=== PATIENT | female | born 1930 | race Two or more races ===

== ENCOUNTER 2020-07-24 21:25 | Inpatient (IN) | payer MEDICARE, BC ==
[~2020-07-24] VITALS: Ht 160 cm; Wt 60.0 kg
[2020-07-24 20:00] VITALS: BP 141/32
[~2020-07-24 21:25] MED LIST: HYDR12.54 PO
[2020-07-24 22:00] VITALS: BP 141/32
[2020-07-24] MEDS ORDERED: ALBUTEROL 6.7GM HFA INHALER ORI PRN (23:15)
[2020-07-24] MEDS ORDERED: CLONIDINE 0.1MG TABLET PO PRN (23:15)
[2020-07-24] MEDS ORDERED: GUAIFENESIN 200MG/10ML SUGAR FREE UDC PO PRN (23:15)
[2020-07-24] MEDS ORDERED: LORAZEPAM 0.5MG TABLET PO PRN (23:15)
[2020-07-24] MEDS ORDERED: NA PHOS,M-B/NA PHOS,DI-BA ENEMA 118ML PR PRN (23:15)
[2020-07-24] MEDS ORDERED: NITROGLYCERIN 0.4MG TABLET SL SL PRN (23:15)
[2020-07-24] MEDS ORDERED: ZOLPIDEM TARTRATE 5MG TABLET PO PRN (23:15)
[2020-07-24] MEDS ORDERED: ACETAMINOPHEN 325MG TABLET PO PRN (23:15)
[2020-07-25] MEDS: ACETAMINOPHEN 325MG TABLET PO PRN ×3 (00:08→21:03)
[2020-07-25] MEDS: SIMETHICONE 80MG TABLET CHEW PO PRN (00:09)
[2020-07-25] MEDS: DOCUSATE SODIUM 100MG CAPSULE PO PRN (05:01)
[2020-07-25 08:00] VITALS: BP 148/34
[2020-07-25 09:09] LABS: CHLORIDE 111 mEq/L (98-107)
[2020-07-25 09:14] LABS: HEMATOCRIT. 27.3 % (36.0-48.0); HEMOGLOBIN. 8.5 g/dL (12.0-16.0); MEAN CORPUSCULAR HEMOGLOBIN 33.6 pg (28.0-32.0); MEAN CORPUSCULAR VOLUME 108.4 fL (81.0-99.0); MEAN PLATELET VOLUME 12.7 fl (7.4-10.4); PLATELET 126 x1000/uL (130-400); RED BLOOD CELL COUNT 2.52 mill/uL (4.2-5.4); RED CELL DISTRIBUTION WIDTH 22.1 % (11.6-14.6)
[2020-07-25] MEDS: ZINC SULFATE 220 MG ( 50 ) CAPSULE PO SCH (09:43)
[2020-07-25] MEDS: ASCORBIC ACID 500 MG TABLET PO SCH ×2 (09:43→20:54)
[2020-07-25] MEDS: CALCIUM CARBONATE/VITAMIN D3 500MG TABLET PO SCH ×2 (09:44→17:27)
[2020-07-25] MEDS: LIDOCAINE 5% PATCH TOP SCH (09:44)
[2020-07-25] MEDS: METOPROLOL TARTRATE 25MG TABLET PO SCH ×2 (09:44→21:49)
[2020-07-25] MEDS: CALCITONIN,SALMON, 3.7 ML NASAL SPRAY ONENSTRL SCH (12:40)
[2020-07-25] MEDS ORDERED: ALBUTEROL (0.083%) 2.5MG/3ML NEB HHN PRN (12:45)
[2020-07-25 14:06] LABS: PLATELET ESTIMATE SLIGHTLY DECREASED
[2020-07-25 20:00] VITALS: BP 140/35
[2020-07-25] MEDS: FAMOTIDINE 20MG TABLET PO SCH (20:55)
[2020-07-25] MEDS: POLYETHYLENE GLYCOL 3350 (17GM) 1 DOSE PACK PO SCH (21:57)
[2020-07-26 06:42] LABS: HEMATOCRIT. 24.6 % (36.0-48.0); HEMOGLOBIN. 7.6 g/dL (12.0-16.0); MEAN CORPUSCULAR HEMOGLOBIN 34.1 pg (28.0-32.0); MEAN CORPUSCULAR VOLUME 110.5 fL (81.0-99.0); MEAN PLATELET VOLUME 12.6 fl (7.4-10.4); PLATELET 120 x1000/uL (130-400); RED BLOOD CELL COUNT 2.23 mill/uL (4.2-5.4); RED CELL DISTRIBUTION WIDTH 22.3 % (11.6-14.6)
[2020-07-26 06:56] LABS: PHOSPHORUS 3.5 mg/dL (2.5-4.9)
[2020-07-26 07:07] LABS: FOLIC ACID (FOLATE) SERUM >20 ng/mL ng/mL (>5.38)
[2020-07-26 07:12] LABS: FERRITIN 408 ng/mL (10-291)
[2020-07-26 07:19] LABS: VITAMIN B12 SERUM >2000 pg/mL pg/mL (211-911)
[2020-07-26 07:21] LABS: CLARITY URINE CLEAR (CLEAR); COLOR URINE DARK YELLOW (YELLOW); KETONES URINE 1+ (NEGATIVE); LEUKOCYTE ESTERASE URINE TRACE (NEGATIVE); NITRITE URINE NEGATIVE (NEGATIVE); OCCULT BLOOD URINE NEGATIVE (NEGATIVE); PROTEIN URINE 2+ (NEGATIVE); SPECIFIC GRAVITY URINE 1.025 (1.005-1.030)
[2020-07-26 08:00] VITALS: BP_SYST 145; BP_DIAS 34; BP_DIAS 35
[2020-07-26] MEDS: CALCIUM CARBONATE/VITAMIN D3 500MG TABLET PO SCH ×2 (08:54→16:43)
[2020-07-26] MEDS: ASCORBIC ACID 500 MG TABLET PO SCH ×2 (08:54→21:00)
[2020-07-26] MEDS: MAGNESIUM/ALUMINUM HYDROXIDE/SIMETHICONE 30ML UDC PO PRN (08:54)
[2020-07-26] MEDS: DOCUSATE SODIUM 100MG CAPSULE PO PRN (08:54)
[2020-07-26] MEDS: ZINC SULFATE 220 MG ( 50 ) CAPSULE PO SCH (08:54)
[2020-07-26] MEDS: METOPROLOL TARTRATE 25MG TABLET PO SCH (08:55)
[2020-07-26] MEDS: LIDOCAINE 5% PATCH TOP SCH (08:56)
[2020-07-26] MEDS: CALCITONIN,SALMON, 3.7 ML NASAL SPRAY ONENSTRL SCH (08:58)
[2020-07-26] MEDS: HYDROXYUREA 500MG CAPSULE PO SCH (09:13)
[2020-07-26 10:43] LABS: PLATELET ESTIMATE DECREASED
[2020-07-26] MEDS ORDERED: NITROGLYCERIN 0.4MG TABLET SL SL PRN (11:00)
[2020-07-26 11:35] LABS: BG BASE EXCESS -0.3 mmol/L (-2.0-2.0); BG CARBOXYHEMOGLOBIN 0.7 % (0.5-1.5); BG DEOXYHEMOGLOBIN 8.1 % (0.0-5.0); BG FRACTION INSPIRED OXYGEN 28; BG HCO3 ACT 24.2 mmol/L (22.0-26.0); BG METHEMOGLOBIN 0.1 % (0.0-1.5); BG OXYGEN SATURATION 91.8 % (92.0-98.5); BG OXYHEMOGLOBIN 91.1 % (94.0-97.0); BG PCO2 38.5 mmHg (35.0-45.0); BG PH 7.416 (7.350-7.450); BG SAMPLE SITE RIGHT BRACHIAL; BG TOTAL HEMOGLOBIN 8.7 g/dL (12.0-18.0); BG VENT MODE NASAL CANNULA
[2020-07-26] MEDS: SPIRONOLACTONE 25MG TABLET PO SCH (11:46)
[2020-07-26] MEDS: AMLODIPINE 5MG TABLET PO SCH (11:46)
[2020-07-26] MEDS: DOCUSATE SODIUM 100MG CAPSULE PO SCH (16:43)
[2020-07-26] MEDS ORDERED: FUROSEMIDE 20MG/2ML VIAL IVP NR (17:45)
[2020-07-26] MEDS: LACTULOSE 20G/30ML UDC PO SCH (17:53)
[2020-07-26 18:09] LABS: BG BASE EXCESS 0.4 mmol/L (-2.0-2.0); BG CARBOXYHEMOGLOBIN 0.7 % (0.5-1.5); BG DEOXYHEMOGLOBIN 4.5 % (0.0-5.0); BG FRACTION INSPIRED OXYGEN 32; BG HCO3 ACT 24.6 mmol/L (22.0-26.0); BG METHEMOGLOBIN 0.4 % (0.0-1.5); BG OXYGEN SATURATION 95.4 % (92.0-98.5); BG OXYHEMOGLOBIN 94.4 % (94.0-97.0); BG PCO2 37.6 mmHg (35.0-45.0); BG PH 7.433 (7.350-7.450); BG PO2 75.6 mmHg (75.0-100.0); BG SAMPLE SITE RIGHT BRACHIAL; BG TOTAL HEMOGLOBIN 8.4 g/dL (12.0-18.0); BG VENT MODE NASAL CANNULA
[2020-07-26] MEDS: POLYETHYLENE GLYCOL 3350 (17GM) 1 DOSE PACK PO SCH (21:00)
[2020-07-26] MEDS: FAMOTIDINE 20MG TABLET PO SCH (21:00)
[2020-07-27 08:00] VITALS: BP 136/37
[2020-07-27] MEDS: MAGNESIUM/ALUMINUM HYDROXIDE/SIMETHICONE 30ML UDC PO PRN (08:43)
[2020-07-27] MEDS: AMLODIPINE 5MG TABLET PO SCH (08:43)
[2020-07-27] MEDS: ZINC SULFATE 220 MG ( 50 ) CAPSULE PO SCH (08:44)
[2020-07-27] MEDS: SPIRONOLACTONE 25MG TABLET PO SCH (08:44)
[2020-07-27] MEDS: DOCUSATE SODIUM 100MG CAPSULE PO SCH ×2 (08:44→17:09)
[2020-07-27] MEDS: CALCIUM CARBONATE/VITAMIN D3 500MG TABLET PO SCH ×2 (08:44→17:09)
[2020-07-27] MEDS: ACETAMINOPHEN 325MG TABLET PO PRN ×3 (08:44→22:31)
[2020-07-27] MEDS: ASCORBIC ACID 500 MG TABLET PO SCH ×2 (08:44→20:47)
[2020-07-27] MEDS: CALCITONIN,SALMON, 3.7 ML NASAL SPRAY ONENSTRL SCH (08:46)
[2020-07-27] MEDS: HYDROXYUREA 500MG CAPSULE PO SCH (08:46)
[2020-07-27] MEDS: LIDOCAINE 5% PATCH TOP SCH (08:46)
[2020-07-27] MEDS: ONDANSETRON HCL 4MG TABLET PO PRN (09:38)
[2020-07-27] MEDS ORDERED: ONDANSETRON HCL 4MG/2ML INJ IV PRN (10:00)
[2020-07-27] MEDS: LACTULOSE 20G/30ML UDC PO SCH (17:09)
[2020-07-27 20:00] VITALS: BP 127/30
[2020-07-27] MEDS: POLYETHYLENE GLYCOL 3350 (17GM) 1 DOSE PACK PO SCH (20:47)
[2020-07-27] MEDS: FAMOTIDINE 20MG TABLET PO SCH (20:47)
[2020-07-28] MEDS: ACETAMINOPHEN 325MG TABLET PO PRN ×2 (06:12→20:15)
[2020-07-28 06:55] LABS: CHLORIDE 107 mEq/L (98-107)
[2020-07-28 07:12] LABS: HEMATOCRIT. 21.9 % (36.0-48.0); MEAN CORPUSCULAR HEMOGLOBIN 34.5 pg (28.0-32.0); MEAN CORPUSCULAR VOLUME 111.3 fL (81.0-99.0); MEAN PLATELET VOLUME 12.7 fl (7.4-10.4); PLATELET 104 x1000/uL (130-400); RED BLOOD CELL COUNT 1.97 mill/uL (4.2-5.4); RED CELL DISTRIBUTION WIDTH 22.1 % (11.6-14.6)
[2020-07-28 08:25] VITALS: BP 132/29
[2020-07-28] MEDS: ZINC SULFATE 220 MG ( 50 ) CAPSULE PO SCH (09:33)
[2020-07-28] MEDS: LIDOCAINE 5% PATCH TOP SCH (09:33)
[2020-07-28] MEDS: CALCIUM CARBONATE/VITAMIN D3 500MG TABLET PO SCH ×2 (09:34→18:14)
[2020-07-28] MEDS: ASCORBIC ACID 500 MG TABLET PO SCH ×2 (09:34→20:15)
[2020-07-28] MEDS: DOCUSATE SODIUM 100MG CAPSULE PO SCH ×2 (09:34→18:14)
[2020-07-28] MEDS: AMLODIPINE 5MG TABLET PO SCH (09:34)
[2020-07-28] MEDS: SPIRONOLACTONE 25MG TABLET PO SCH (09:34)
[2020-07-28] MEDS: HYDROXYUREA 500MG CAPSULE PO SCH (09:34)
[2020-07-28] MEDS: CALCITONIN,SALMON, 3.7 ML NASAL SPRAY ONENSTRL SCH (09:35)
[2020-07-28 10:22] LABS: HEMOGLOBIN. 6.8 g/dL (12.0-16.0)
[2020-07-28 10:33] LABS: PLATELET ESTIMATE SLIGHTLY DECREASED
[2020-07-28 17:45] VITALS: BP 126/29
[2020-07-28] MEDS: LACTULOSE 20G/30ML UDC PO SCH (18:00)
[2020-07-28 18:45] VITALS: BP 136/34
[2020-07-28 19:45] VITALS: BP 140/34
[2020-07-28 20:00] VITALS: BP 140/34
[2020-07-28 20:10] VITALS: BP 141/32
[2020-07-28] MEDS: FAMOTIDINE 20MG TABLET PO SCH (20:15)
[2020-07-28] MEDS: POLYETHYLENE GLYCOL 3350 (17GM) 1 DOSE PACK PO SCH (20:15)
[2020-07-28 23:20] LABS: HEMATOCRIT 26.3 % (36.0-48.0); HEMOGLOBIN 8.4 g/dL (12.0-16.0)
[2020-07-29] MEDS: ACETAMINOPHEN 325MG TABLET PO PRN ×2 (00:28→07:48)
[2020-07-29 07:08] LABS: CHLORIDE 108 mEq/L (98-107)
[2020-07-29 07:11] LABS: HEMATOCRIT. 25.2 % (36.0-48.0); HEMOGLOBIN. 8.2 g/dL (12.0-16.0); MEAN CORPUSCULAR HEMOGLOBIN 34.8 pg (28.0-32.0); MEAN CORPUSCULAR VOLUME 107.3 fL (81.0-99.0); MEAN PLATELET VOLUME 12.9 fl (7.4-10.4); PLATELET 91 x1000/uL (130-400); RED BLOOD CELL COUNT 2.35 mill/uL (4.2-5.4); RED CELL DISTRIBUTION WIDTH 20.3 % (11.6-14.6)
[2020-07-29] MEDS: ZINC SULFATE 220 MG ( 50 ) CAPSULE PO SCH (07:47)
[2020-07-29] MEDS: DOCUSATE SODIUM 100MG CAPSULE PO SCH ×2 (07:47→16:41)
[2020-07-29] MEDS: CALCIUM CARBONATE/VITAMIN D3 500MG TABLET PO SCH ×2 (07:48→16:41)
[2020-07-29] MEDS: SPIRONOLACTONE 25MG TABLET PO SCH (07:48)
[2020-07-29] MEDS: AMLODIPINE 5MG TABLET PO SCH (07:48)
[2020-07-29] MEDS: CALCITONIN,SALMON, 3.7 ML NASAL SPRAY ONENSTRL SCH (07:49)
[2020-07-29] MEDS: LIDOCAINE 5% PATCH TOP SCH (07:49)
[2020-07-29] MEDS: ASCORBIC ACID 500 MG TABLET PO SCH ×2 (07:49→20:12)
[2020-07-29] MEDS: HYDROXYUREA 500MG CAPSULE PO SCH (07:49)
[2020-07-29 08:00] VITALS: BP 146/39
[2020-07-29] MEDS ORDERED: LIDOCAINE 5% PATCH TOP SCH (08:30)
[2020-07-29] MEDS ORDERED: ACETAMINOPHEN 500MG TABLET PO PRN (09:00)
[2020-07-29] MEDS ORDERED: SPIRONOLACTONE 25MG TABLET PO SCH ×2 (09:00)
[2020-07-29] MEDS: TRAMADOL 50MG TABLET PO PRN (09:41)
[2020-07-29 10:10] LABS: PLATELET ESTIMATE SLIGHTLY DECREASED
[2020-07-29] MEDS ORDERED: OMEPRAZOLE 20MG CAPSULE EXTENDED RELEASE PO SCH (12:15)
[2020-07-29] MEDS: ACETAMINOPHEN 500MG TABLET PO SCH ×2 (12:50→17:00)
[2020-07-29 13:07] LABS: 25-HYDROXY VITAMIN D3 27 ng/mL (.)
[2020-07-29] MEDS: LACTULOSE 20G/30ML UDC PO SCH (17:23)
[2020-07-29 20:00] VITALS: BP 131/32
[2020-07-29] MEDS: PANTOPRAZOLE SODIUM 40 MG/VIAL IV SCH (20:11)
[2020-07-29] MEDS: POLYETHYLENE GLYCOL 3350 (17GM) 1 DOSE PACK PO SCH (20:12)
[2020-07-30 06:40] LABS: HEMATOCRIT. 22.6 % (36.0-48.0); HEMOGLOBIN. 7.3 g/dL (12.0-16.0); MEAN CORPUSCULAR HEMOGLOBIN 34.9 pg (28.0-32.0); MEAN CORPUSCULAR VOLUME 108.4 fL (81.0-99.0); MEAN PLATELET VOLUME 12.4 fl (7.4-10.4); PLATELET 65 x1000/uL (130-400); RED BLOOD CELL COUNT 2.08 mill/uL (4.2-5.4); RED CELL DISTRIBUTION WIDTH 19.6 % (11.6-14.6)
[2020-07-30 06:46] LABS: INR 1.3; PARTIAL THROMBOPLASTIN TIME 33.4 sec (23.4-31.0)
[2020-07-30 07:17] LABS: CHLORIDE 109 mEq/L (98-107)
[2020-07-30 08:00] VITALS: BP 133/89
[2020-07-30] MEDS ORDERED: FUROSEMIDE 40MG TABLET PO NR (08:00)
[2020-07-30] MEDS: HYDROXYUREA 500MG CAPSULE PO SCH (08:00)
[2020-07-30] MEDS: ZINC SULFATE 220 MG ( 50 ) CAPSULE PO SCH (09:00)
[2020-07-30] MEDS: ASCORBIC ACID 500 MG TABLET PO SCH ×2 (09:00→20:17)
[2020-07-30] MEDS: ACETAMINOPHEN 500MG TABLET PO SCH ×3 (09:00→17:06)
[2020-07-30] MEDS: SPIRONOLACTONE 25MG TABLET PO SCH (09:00)
[2020-07-30] MEDS: DOCUSATE SODIUM 100MG CAPSULE PO SCH ×2 (09:00→17:15)
[2020-07-30] MEDS: AMLODIPINE 5MG TABLET PO SCH (09:00)
[2020-07-30] MEDS: CALCIUM CARBONATE/VITAMIN D3 500MG TABLET PO SCH ×2 (09:00→17:06)
[2020-07-30] MEDS: PANTOPRAZOLE SODIUM 40 MG/VIAL IV SCH ×2 (09:59→20:17)
[2020-07-30] MEDS: CALCITONIN,SALMON, 3.7 ML NASAL SPRAY ONENSTRL SCH (10:02)
[2020-07-30] MEDS: LIDOCAINE 5% PATCH TOP SCH (10:04)
[2020-07-30] MEDS ORDERED: MIDAZOLAM HCL 5 MG/5 ML VIAL ONE (13:15)
[2020-07-30] MEDS ORDERED: FENTANYL CITRATE/PF 50MCG/ML 2ML VIAL ONE (13:15)
[2020-07-30] MEDS ORDERED: MIDAZOLAM HCL 5 MG/5 ML VIAL IV PRN (13:15)
[2020-07-30] MEDS: TRAMADOL 50MG TABLET PO PRN (15:50)
[2020-07-30] MEDS: LACTULOSE 20G/30ML UDC PO SCH (17:16)
[2020-07-30 20:00] VITALS: BP 118/28
[2020-07-30] MEDS: POLYETHYLENE GLYCOL 3350 (17GM) 1 DOSE PACK PO SCH ×2 (20:17→20:22)
[2020-07-31 05:49] LABS: NUCLEATED RED BLOOD CELLS 1 /100 WBC; PLATELET ESTIMATE DECREASED
[2020-07-31 07:12] LABS: MEAN CORPUSCULAR HEMOGLOBIN 35.2 pg (28.0-32.0); MEAN CORPUSCULAR VOLUME 108.5 fL (81.0-99.0); MEAN PLATELET VOLUME 12.8 fl (7.4-10.4); PLATELET 51 x1000/uL (130-400); RED BLOOD CELL COUNT 1.86 mill/uL (4.2-5.4); RED CELL DISTRIBUTION WIDTH 18.9 % (11.6-14.6)
[2020-07-31 08:00] VITALS: BP 118/24
[2020-07-31 08:05] LABS: HEMATOCRIT. 20.1 % (36.0-48.0); HEMOGLOBIN. 6.5 g/dL (12.0-16.0)
[2020-07-31] MEDS: DOCUSATE SODIUM 100MG CAPSULE PO SCH ×2 (09:00→17:00)
[2020-07-31] MEDS: HYDROXYUREA 500MG CAPSULE PO SCH (09:20)
[2020-07-31] MEDS: SPIRONOLACTONE 25MG TABLET PO SCH (09:21)
[2020-07-31] MEDS: AMLODIPINE 5MG TABLET PO SCH (09:22)
[2020-07-31] MEDS: ZINC SULFATE 220 MG ( 50 ) CAPSULE PO SCH (09:22)
[2020-07-31] MEDS: ASCORBIC ACID 500 MG TABLET PO SCH ×2 (09:23→21:27)
[2020-07-31] MEDS: CALCIUM CARBONATE/VITAMIN D3 500MG TABLET PO SCH ×2 (09:23→18:25)
[2020-07-31] MEDS: LIDOCAINE 5% PATCH TOP SCH (09:23)
[2020-07-31] MEDS: PANTOPRAZOLE SODIUM 40 MG/VIAL IV SCH ×2 (09:23→21:27)
[2020-07-31] MEDS: CALCITONIN,SALMON, 3.7 ML NASAL SPRAY ONENSTRL SCH (09:24)
[2020-07-31] MEDS: ACETAMINOPHEN 500MG TABLET PO SCH ×3 (09:33→17:00)
[2020-07-31] MEDS ORDERED: ERGOCALCIFEROL 50000UNITS CAPSULE PO SCH (14:00)
[2020-07-31 14:53] LABS: NUCLEATED RED BLOOD CELLS 1 /100 WBC; PLATELET ESTIMATE DECREASED
[2020-07-31 15:44] VITALS: BP 123/19
[2020-07-31 16:09] VITALS: BP 123/27
[2020-07-31 16:39] VITALS: BP 122/27
[2020-07-31] MEDS: LACTULOSE 20G/30ML UDC PO SCH (17:34)
[2020-07-31 17:39] VITALS: BP 123/28
[2020-07-31 20:00] VITALS: BP 121/27
[2020-07-31 20:49] LABS: HEMOGLOBIN 7.6 g/dL (12.0-16.0)
[2020-07-31] MEDS: POLYETHYLENE GLYCOL 3350 (17GM) 1 DOSE PACK PO SCH (21:00)
[2020-08-01] MEDS: ACETAMINOPHEN 325MG TABLET PO PRN (01:54)
[2020-08-01 08:08] VITALS: BP 119/24
[2020-08-01] MEDS: DOCUSATE SODIUM 100MG CAPSULE PO SCH ×2 (08:17→16:42)
[2020-08-01] MEDS: HYDROXYUREA 500MG CAPSULE PO SCH (08:17)
[2020-08-01] MEDS: PANTOPRAZOLE SODIUM 40 MG/VIAL IV SCH ×2 (08:17→21:00)
[2020-08-01] MEDS: SPIRONOLACTONE 25MG TABLET PO SCH (08:18)
[2020-08-01] MEDS: ZINC SULFATE 220 MG ( 50 ) CAPSULE PO SCH (08:18)
[2020-08-01] MEDS: AMLODIPINE 5MG TABLET PO SCH ×2 (08:18→09:00)
[2020-08-01] MEDS: ASCORBIC ACID 500 MG TABLET PO SCH ×2 (08:19→22:50)
[2020-08-01] MEDS: CALCIUM CARBONATE/VITAMIN D3 500MG TABLET PO SCH ×2 (08:19→16:45)
[2020-08-01] MEDS: CALCITONIN,SALMON, 3.7 ML NASAL SPRAY ONENSTRL SCH (08:21)
[2020-08-01] MEDS: ACETAMINOPHEN 500MG TABLET PO SCH ×3 (08:21→18:26)
[2020-08-01] MEDS: LIDOCAINE 5% PATCH TOP SCH (08:22)
[2020-08-01] MEDS: LACTULOSE 20G/30ML UDC PO SCH (18:00)
[2020-08-01 20:00] VITALS: BP 123/28
[2020-08-01] MEDS: POLYETHYLENE GLYCOL 3350 (17GM) 1 DOSE PACK PO SCH (21:00)
[2020-08-02] MEDS: SIMETHICONE 80MG TABLET CHEW PO PRN (03:06)
[2020-08-02 06:32] LABS: HEMATOCRIT. 22.9 % (36.0-48.0); HEMOGLOBIN. 7.4 g/dL (12.0-16.0); MEAN CORPUSCULAR VOLUME 104.6 fL (81.0-99.0); MEAN PLATELET VOLUME 12.1 fl (7.4-10.4); RED BLOOD CELL COUNT 2.19 mill/uL (4.2-5.4); RED CELL DISTRIBUTION WIDTH 19.4 % (11.6-14.6)
[2020-08-02 07:51] LABS: PLATELET 42 x1000/uL (130-400)
[2020-08-02 08:00] VITALS: BP 131/24
[2020-08-02] MEDS: DOCUSATE SODIUM 100MG CAPSULE PO SCH ×2 (09:00→17:00)
[2020-08-02] MEDS: SPIRONOLACTONE 25MG TABLET PO SCH (09:50)
[2020-08-02] MEDS: CALCIUM CARBONATE/VITAMIN D3 500MG TABLET PO SCH ×2 (09:50→18:50)
[2020-08-02] MEDS: ZINC SULFATE 220 MG ( 50 ) CAPSULE PO SCH (09:50)
[2020-08-02] MEDS: ASCORBIC ACID 500 MG TABLET PO SCH ×2 (09:50→21:29)
[2020-08-02] MEDS: CALCITONIN,SALMON, 3.7 ML NASAL SPRAY ONENSTRL SCH (09:52)
[2020-08-02] MEDS: HYDROXYUREA 500MG CAPSULE PO SCH (09:52)
[2020-08-02] MEDS: PANTOPRAZOLE SODIUM 40 MG/VIAL IV SCH ×3 (09:52→21:29)
[2020-08-02] MEDS: ACETAMINOPHEN 500MG TABLET PO SCH ×3 (09:53→17:00)
[2020-08-02] MEDS: LIDOCAINE 5% PATCH TOP SCH (09:53)
[2020-08-02 14:09] LABS: PLATELET ESTIMATE MARKEDLY DECREASED
[2020-08-02 14:30] VITALS: BP 120/24
[2020-08-02] MEDS: FUROSEMIDE 20MG TABLET PO SCH (17:52)
[2020-08-02] MEDS: LACTULOSE 20G/30ML UDC PO SCH (17:52)
[2020-08-02 20:00] VITALS: BP 125/30
[2020-08-02] MEDS: POLYETHYLENE GLYCOL 3350 (17GM) 1 DOSE PACK PO SCH (21:29)
[2020-08-03 07:58] VITALS: BP 125/26
[2020-08-03] MEDS: SIMETHICONE 80MG TABLET CHEW PO PRN (09:30)
[2020-08-03] MEDS: HYDROXYUREA 500MG CAPSULE PO SCH (09:30)
[2020-08-03] MEDS: SPIRONOLACTONE 25MG TABLET PO SCH (09:31)
[2020-08-03] MEDS: PANTOPRAZOLE SODIUM 40 MG/VIAL IV SCH ×2 (09:31→21:37)
[2020-08-03] MEDS: FUROSEMIDE 20MG TABLET PO SCH (09:31)
[2020-08-03] MEDS: LIDOCAINE 5% PATCH TOP SCH (09:31)
[2020-08-03] MEDS: CALCIUM CARBONATE/VITAMIN D3 500MG TABLET PO SCH ×2 (09:32→17:24)
[2020-08-03] MEDS: ZINC SULFATE 220 MG ( 50 ) CAPSULE PO SCH (09:32)
[2020-08-03] MEDS: ACETAMINOPHEN 500MG TABLET PO SCH ×4 (09:32→17:25)
[2020-08-03] MEDS: DOCUSATE SODIUM 100MG CAPSULE PO SCH ×2 (09:32→17:00)
[2020-08-03] MEDS: CALCITONIN,SALMON, 3.7 ML NASAL SPRAY ONENSTRL SCH (09:33)
[2020-08-03] MEDS: ASCORBIC ACID 500 MG TABLET PO SCH ×2 (09:34→21:38)
[2020-08-03] MEDS: TRAMADOL 50MG TABLET PO PRN (11:11)
[2020-08-03] MEDS: LACTULOSE 20G/30ML UDC PO SCH (17:25)
[2020-08-03 20:00] VITALS: BP 123/29
[2020-08-03] MEDS: POLYETHYLENE GLYCOL 3350 (17GM) 1 DOSE PACK PO SCH (21:00)
[2020-08-04] VITALS (7 sets, daily range): BP systolic 110–137; BP diastolic 23–29
[2020-08-04] MEDS: TRAMADOL 50MG TABLET PO PRN (01:30)
[2020-08-04] MEDS: ONDANSETRON HCL 4MG TABLET PO PRN (01:30)
[2020-08-04 05:18] LABS: MEAN CORPUSCULAR HEMOGLOBIN 34.2 pg (28.0-32.0); MEAN CORPUSCULAR VOLUME 104.6 fL (81.0-99.0); MEAN PLATELET VOLUME 11.2 fl (7.4-10.4); RED BLOOD CELL COUNT 1.95 mill/uL (4.2-5.4); RED CELL DISTRIBUTION WIDTH 18.7 % (11.6-14.6)
[2020-08-04 05:24] LABS: HEMATOCRIT. 20.3 % (36.0-48.0); HEMOGLOBIN. 6.7 g/dL (12.0-16.0); PLATELET 39 x1000/uL (130-400)
[2020-08-04] MEDS: HYDROXYUREA 500MG CAPSULE PO SCH (08:20)
[2020-08-04] MEDS: ASCORBIC ACID 500 MG TABLET PO SCH ×2 (08:20→21:26)
[2020-08-04] MEDS: CALCITONIN,SALMON, 3.7 ML NASAL SPRAY ONENSTRL SCH (08:20)
[2020-08-04] MEDS: ZINC SULFATE 220 MG ( 50 ) CAPSULE PO SCH (08:20)
[2020-08-04] MEDS: CALCIUM CARBONATE/VITAMIN D3 500MG TABLET PO SCH ×2 (08:20→17:16)
[2020-08-04] MEDS: PANTOPRAZOLE SODIUM 40 MG/VIAL IV SCH ×2 (08:38→21:27)
[2020-08-04] MEDS: FUROSEMIDE 20MG TABLET PO SCH (08:39)
[2020-08-04] MEDS: DOCUSATE SODIUM 100MG CAPSULE PO SCH (08:39)
[2020-08-04] MEDS: ACETAMINOPHEN 500MG TABLET PO SCH ×3 (08:39→16:45)
[2020-08-04] MEDS: LIDOCAINE 5% PATCH TOP SCH (08:39)
[2020-08-04] MEDS: SPIRONOLACTONE 25MG TABLET PO SCH (08:39)
[2020-08-04] MEDS ORDERED: LACTULOSE 20G/30ML UDC PO PRN (11:45)
[2020-08-04 17:53] LABS: PLATELET ESTIMATE MARKEDLY DECREASED
[2020-08-04 19:22] LABS: HEMATOCRIT 22.2 % (36.0-48.0); HEMOGLOBIN 7.4 g/dL (12.0-16.0)
[2020-08-04] MEDS: POLYETHYLENE GLYCOL 3350 (17GM) 1 DOSE PACK PO SCH (21:00)
[2020-08-05 06:36] LABS: MEAN CORPUSCULAR HEMOGLOBIN 33.7 pg (28.0-32.0); MEAN CORPUSCULAR VOLUME 100.2 fL (81.0-99.0); MEAN PLATELET VOLUME 12.8 fl (7.4-10.4); RED BLOOD CELL COUNT 1.98 mill/uL (4.2-5.4); RED CELL DISTRIBUTION WIDTH 16.4 % (11.6-14.6)
[2020-08-05 06:57] LABS: HEMATOCRIT. 19.8 % (36.0-48.0); HEMOGLOBIN. 6.7 g/dL (12.0-16.0); PLATELET 32 x1000/uL (130-400)
[2020-08-05 08:03] VITALS: BP 119/21
[2020-08-05] MEDS: LIDOCAINE 5% PATCH TOP SCH ×2 (09:00→09:07)
[2020-08-05] MEDS: HYDROXYUREA 500MG CAPSULE PO SCH (09:06)
[2020-08-05] MEDS: ASCORBIC ACID 500 MG TABLET PO SCH (09:07)
[2020-08-05] MEDS: CALCIUM CARBONATE/VITAMIN D3 500MG TABLET PO SCH (09:07)
[2020-08-05] MEDS: PANTOPRAZOLE SODIUM 40 MG/VIAL IV SCH (09:07)
[2020-08-05] MEDS: ACETAMINOPHEN 500MG TABLET PO SCH (09:07)
[2020-08-05] MEDS: ZINC SULFATE 220 MG ( 50 ) CAPSULE PO SCH (09:07)
[2020-08-05] MEDS: FUROSEMIDE 20MG TABLET PO SCH (09:07)
[2020-08-05] MEDS: SPIRONOLACTONE 25MG TABLET PO SCH (09:07)
[2020-08-05] MEDS: CALCITONIN,SALMON, 3.7 ML NASAL SPRAY ONENSTRL SCH (09:20)
[2020-08-05 10:22] LABS: PLATELET ESTIMATE MARKEDLY DECREASED
[2020-08-05 10:25] VITALS: BP 119/21
[2020-08-05] MEDS ORDERED: AMLO10TA4 PO (13:42)
[2020-08-05] MEDS ORDERED: ATOR10TA PO (13:42)
== END 2020-08-05 11:57 | disposition short-term general hospital (02) | DRG 552 ==
PROVIDERS: ADMIT Physical Medicine & Rehabilitation Spinal Cord Injury Medicine; ATTEND Internal Medicine
DX: S32.039A Unspecified fracture of third lumbar vertebra, initial encounter for closed fracture (principal); W18.39XA Other fall on same level, initial encounter; Y93.89 Activity, other specified; Y92.89 Other specified places as the place of occurrence of the external cause; Y99.8 Other external cause status; E78.5 Hyperlipidemia, unspecified; M81.0 Age-related osteoporosis without current pathological fracture; I10 Essential (primary) hypertension; J45.909 Unspecified asthma, uncomplicated; M48.061 Spinal stenosis, lumbar region without neurogenic claudication; M47.894 Other spondylosis, thoracic region; R53.81 Other malaise; D69.6 Thrombocytopenia, unspecified; D64.9 Anemia, unspecified; D72.829 Elevated white blood cell count, unspecified
CPT/HCPCS: 36415; 36600; 71045; 78580; 80048; 80053; 81003; 82140; 82270; 82306; 82375; 82607; 82728; 82746; 82805; 83540; 83550; 83605; 83735; 83880; 84100; 84134; 84145; 84443; 84484; 85014; 85018; 85025; 86850; 86900; 86920; 87426; 88305; 88313; 92523; 93005; 93970; 94640; 97110; 97116; 97162; 97166; 97530; 97535; C9113; J1940; J2250; J2405; J3010; P9016; Q0162

== ENCOUNTER 2020-08-15 03:52 | Inpatient (IN) | payer MEDICARE, BC ==
[~2020-08-15] VITALS: Ht 152.4 cm; Wt 60.3 kg
[~2020-08-15 03:52] MED LIST changes: +AMLO10TA4 PO; +ATOR10TA PO
[2020-08-15] MEDS ORDERED: SODIUM CHLORIDE 0.9% 1,000 ML IV ONE (05:30)
[2020-08-15 05:53] LABS: CHLORIDE 107 mEq/L (98-107)
[2020-08-15 06:05] LABS: MEAN CORPUSCULAR HEMOGLOBIN 32.2 pg (28.0-32.0); MEAN CORPUSCULAR VOLUME 99.1 fL (81.0-99.0); MEAN PLATELET VOLUME 13.5 fl (7.4-10.4); RED BLOOD CELL COUNT 1.98 mill/uL (4.2-5.4); RED CELL DISTRIBUTION WIDTH 15.8 % (11.6-14.6)
[2020-08-15 06:06] LABS: INR 1.6; PARTIAL THROMBOPLASTIN TIME 28.5 sec (23.4-31.0); PROTHROMBIN TIME 16.4 sec (9.6-11.0)
[2020-08-15 06:12] LABS: HEMATOCRIT. 19.6 % (36.0-48.0); PLATELET 33 x1000/uL (130-400)
[2020-08-15 06:13] LABS: HEMOGLOBIN. 6.4 g/dL (12.0-16.0)
[2020-08-15] MEDS ORDERED: ONDANSETRON HCL 4MG/2ML INJ IV STA (06:29)
[2020-08-15] MEDS ORDERED: MORPHINE SULFATE 4 MG/ML CPJ (NOT FOR IM USE) IV STA (06:29)
[2020-08-15] MEDS ORDERED: FLUORESCEIN SODIUM 1MG/STRIP RIGHTEYE ONE (06:30)
[2020-08-15] MEDS ORDERED: VANCOMYCIN 1 G PREMIX 200 ML IV ONE (06:30)
[2020-08-15] MEDS ORDERED: SODIUM CHLORIDE 0.9% 1000ML BAG (SEPSIS BOLUS) IV ONE (06:30)
[2020-08-15] MEDS ORDERED: PIPERACILLIN/TAZ 3.375G PREMIX 50 ML IV ONE (06:30)
[2020-08-15] MEDS ORDERED: TETRACAINE 0.5% OPHTH DROPS 4ML RIGHTEYE ONE (06:30)
[2020-08-15 07:42] LABS: PLATELET ESTIMATE DECREASED
[2020-08-15 08:38] LABS: CLARITY URINE CLEAR (CLEAR); COLOR URINE DARK YELLOW (YELLOW); KETONES URINE NEGATIVE (NEGATIVE); LEUKOCYTE ESTERASE URINE TRACE (NEGATIVE); NITRITE URINE NEGATIVE (NEGATIVE); OCCULT BLOOD URINE NEGATIVE (NEGATIVE); PROTEIN URINE NEGATIVE (NEGATIVE); SPECIFIC GRAVITY URINE 1.019 (1.005-1.030)
[2020-08-15] MEDS ORDERED: MAGNESIUM/ALUMINUM HYDROXIDE/SIMETHICONE 30ML UDC PO PRN (10:00)
[2020-08-15] MEDS ORDERED: IPRATROPIUM/ALBUTEROL 0.5-3(2.5)MG/3ML NEB NEB PRN (10:00)
[2020-08-15] MEDS ORDERED: ACETAMINOPHEN 325MG TABLET PO PRN ×2 (10:00)
[2020-08-15] MEDS ORDERED: LORAZEPAM 0.5MG TABLET PO PRN (10:00)
[2020-08-15] MEDS ORDERED: DOCUSATE SODIUM 100MG CAPSULE PO PRN (10:00)
[2020-08-15] MEDS ORDERED: TRAMADOL 50MG TABLET PO PRN (10:00)
[2020-08-15] MEDS ORDERED: CLONIDINE 0.1MG TABLET PO PRN (10:00)
[2020-08-15] MEDS ORDERED: GUAIFENESIN 200MG/10ML SUGAR FREE UDC PO PRN (10:00)
[2020-08-15] MEDS ORDERED: NITROGLYCERIN 0.4MG TABLET SL SL PRN (10:00)
[2020-08-15] MEDS ORDERED: ALBUMIN HUMAN 25GM/500ML (5%) IV NR (14:00)
[2020-08-15 17:53] LABS: CREATINE KINASE MB FRACTION 3.2 ng/mL (0.5-3.6)
[2020-08-15 20:15] VITALS: BP 113/60
[2020-08-15 20:47] VITALS: BP 113/60
[2020-08-15] MEDS: FAMOTIDINE 20MG TABLET PO SCH (20:59)
[2020-08-15] MEDS: ATORVASTATIN CALCIUM 10MG TABLET PO SCH (20:59)
[2020-08-15] MEDS: ASCORBIC ACID 500 MG TABLET PO SCH (20:59)
[2020-08-15] MEDS ORDERED: ZOLPIDEM TARTRATE 5MG TABLET PO PRN (21:00)
[2020-08-15 23:27] LABS: CREATINE KINASE MB FRACTION 1.6 ng/mL (0.5-3.6)
[2020-08-16] VITALS (14 sets, daily range): BP systolic 111–137; BP diastolic 27–52
[2020-08-16 07:28] LABS: CHLORIDE 113 mEq/L (98-107); HEMATOCRIT. 21.7 % (36.0-48.0); HEMOGLOBIN. 7.8 g/dL (12.0-16.0); MEAN CORPUSCULAR HEMOGLOBIN 33.7 pg (28.0-32.0); MEAN CORPUSCULAR VOLUME 93.8 fL (81.0-99.0); MEAN PLATELET VOLUME 10.7 fl (7.4-10.4); RED BLOOD CELL COUNT 2.31 mill/uL (4.2-5.4); RED CELL DISTRIBUTION WIDTH 15.3 % (11.6-14.6)
[2020-08-16 07:38] LABS: PHOSPHORUS 4.4 mg/dL (2.5-4.9)
[2020-08-16 07:55] LABS: PLATELET 11 x1000/uL (130-400)
[2020-08-16] MEDS: ZINC SULFATE 220 MG ( 50 ) CAPSULE PO SCH (08:51)
[2020-08-16] MEDS: ASCORBIC ACID 500 MG TABLET PO SCH ×2 (08:51→21:53)
[2020-08-16] MEDS: ONDANSETRON HCL 4MG/2ML INJ IV PRN (11:01)
[2020-08-16 11:19] LABS: PLATELET ESTIMATE MARKEDLY DECREASED
[2020-08-16] MEDS: ISOSORBIDE DINITRATE 10MG TABLET PO SCH ×2 (12:10→17:09)
[2020-08-16] MEDS ORDERED: FUROSEMIDE 40MG/4ML VIAL IVP NR (16:00)
[2020-08-16 19:58] LABS: HEMATOCRIT 26.9 % (36.0-48.0); HEMOGLOBIN 9.2 g/dL (12.0-16.0)
[2020-08-16 20:23] LABS: INR 1.5; PROTHROMBIN TIME 15.2 sec (9.6-11.0)
[2020-08-16] MEDS: FAMOTIDINE 20MG TABLET PO SCH (21:53)
[2020-08-16] MEDS: ATORVASTATIN CALCIUM 10MG TABLET PO SCH (21:53)
[2020-08-17] VITALS (7 sets, daily range): BP systolic 126–143; BP diastolic 31–69
[2020-08-17] MEDS: ISOSORBIDE DINITRATE 10MG TABLET PO SCH ×3 (09:05→17:32)
[2020-08-17] MEDS: ASCORBIC ACID 500 MG TABLET PO SCH ×2 (09:05→21:43)
[2020-08-17] MEDS: ZINC SULFATE 220 MG ( 50 ) CAPSULE PO SCH (09:05)
[2020-08-17] MEDS: SPIRONOLACTONE 25MG TABLET PO SCH (09:06)
[2020-08-17] MEDS: FAMOTIDINE 20MG TABLET PO SCH (21:43)
[2020-08-17] MEDS: ATORVASTATIN CALCIUM 40MG TABLET PO SCH (21:43)
[2020-08-18] VITALS (7 sets, daily range): BP systolic 125–136; BP diastolic 29–42
[2020-08-18] MEDS: ISOSORBIDE DINITRATE 10MG TABLET PO SCH ×3 (08:50→17:00)
[2020-08-18] MEDS: ZINC SULFATE 220 MG ( 50 ) CAPSULE PO SCH (08:50)
[2020-08-18] MEDS: SPIRONOLACTONE 25MG TABLET PO SCH (08:50)
[2020-08-18] MEDS: ASCORBIC ACID 500 MG TABLET PO SCH ×2 (08:50→21:38)
[2020-08-18] MEDS: ONDANSETRON HCL 4MG/2ML INJ IV PRN ×2 (09:29→14:04)
[2020-08-18 13:30] LABS: HEMATOCRIT. 27.6 % (36.0-48.0); HEMOGLOBIN. 9.4 g/dL (12.0-16.0); MEAN CORPUSCULAR VOLUME 94.1 fL (81.0-99.0); MEAN PLATELET VOLUME 10.1 fl (7.4-10.4); RED BLOOD CELL COUNT 2.94 mill/uL (4.2-5.4); RED CELL DISTRIBUTION WIDTH 15.3 % (11.6-14.6)
[2020-08-18 13:44] LABS: PLATELET 12 x1000/uL (130-400)
[2020-08-18] MEDS: MORPHINE SULFATE 2 MG/ML CPJ (NOT FOR IM USE) IV PRN (14:05)
[2020-08-18 17:01] LABS: PLATELET ESTIMATE MARKEDLY INCREASED
[2020-08-18] MEDS: FAMOTIDINE 20MG TABLET PO SCH (21:37)
[2020-08-18] MEDS: ATORVASTATIN CALCIUM 40MG TABLET PO SCH (21:37)
[2020-08-19] VITALS (7 sets, daily range): BP systolic 109–141; BP diastolic 23–41
[2020-08-19] MEDS: ZINC SULFATE 220 MG ( 50 ) CAPSULE PO SCH (08:44)
[2020-08-19] MEDS: ASCORBIC ACID 500 MG TABLET PO SCH ×2 (08:44→22:51)
[2020-08-19] MEDS: SPIRONOLACTONE 25MG TABLET PO SCH (08:44)
[2020-08-19] MEDS: ISOSORBIDE DINITRATE 10MG TABLET PO SCH ×3 (08:44→18:04)
[2020-08-19] MEDS: ATORVASTATIN CALCIUM 40MG TABLET PO SCH (22:51)
[2020-08-19] MEDS: FAMOTIDINE 20MG TABLET PO SCH (22:51)
[2020-08-20] VITALS (7 sets, daily range): BP systolic 90–121; BP diastolic 15–36
[2020-08-20] MEDS: SPIRONOLACTONE 25MG TABLET PO SCH (08:33)
[2020-08-20] MEDS: ISOSORBIDE DINITRATE 10MG TABLET PO SCH ×2 (08:34→13:00)
[2020-08-20] MEDS: ZINC SULFATE 220 MG ( 50 ) CAPSULE PO SCH (08:34)
[2020-08-20] MEDS: ASCORBIC ACID 500 MG TABLET PO SCH (08:34)
[2020-08-20] MEDS: MORPHINE SULFATE 2 MG/ML CPJ (NOT FOR IM USE) IV PRN (09:20)
[2020-08-20] MEDS ORDERED: MORPHINE SULFATE 2 MG/ML CPJ (NOT FOR IM USE) IV SCH (14:15)
[2020-08-20] MEDS ORDERED: LORAZEPAM 2MG/ML CPJ IV PRN (14:15)
[2020-08-20] MEDS ORDERED: MORPHINE SULFATE 250 MG in DEXT 5% WATER 225 ML IV PRN (14:30)
[2020-08-21] VITALS: BP 84/24
== END 2020-08-21 01:47 | disposition expired | DRG 64 ==
LOC: ER 03:52 → 7EST 09:30 → ENRESERV 19:20 → 6WST 08-16 14:04
PROVIDERS: ADMIT Internal Medicine; ATTEND Internal Medicine
PROC: 30233N1 Transfusion of Nonautologous Red Blood Cells into Peripheral Vein, Percutaneous Approach (ICD-10-PCS; 2020-08-15)
PROC: 30233R1 Transfusion of Nonautologous Platelets into Peripheral Vein, Percutaneous Approach (ICD-10-PCS; principal; 2020-08-16)
DX: I63.9 Cerebral infarction, unspecified (principal); J96.00 Acute respiratory failure, unspecified whether with hypoxia or hypercapnia; N17.0 Acute kidney failure with tubular necrosis; I22.2 Subsequent non-ST elevation (NSTEMI) myocardial infarction; I50.33 Acute on chronic diastolic (congestive) heart failure; E44.1 Mild protein-calorie malnutrition; R17 Unspecified jaundice; H57.11 Ocular pain, right eye; D53.9 Nutritional anemia, unspecified; D63.8 Anemia in other chronic diseases classified elsewhere; H11.001 Unspecified pterygium of right eye; I11.0 Hypertensive heart disease with heart failure; E78.00 Pure hypercholesterolemia, unspecified; M81.0 Age-related osteoporosis without current pathological fracture; E11.36 Type 2 diabetes mellitus with diabetic cataract; D72.829 Elevated white blood cell count, unspecified; E78.5 Hyperlipidemia, unspecified; I27.20 Pulmonary hypertension, unspecified; G62.9 Polyneuropathy, unspecified; D69.6 Thrombocytopenia, unspecified; G89.29 Other chronic pain; I49.3 Ventricular premature depolarization; J44.9 Chronic obstructive pulmonary disease, unspecified; Z20.828 Contact with and (suspected) exposure to other viral communicable diseases; Z51.5 Encounter for palliative care; Z66 Do not resuscitate; Z79.899 Other long term (current) drug therapy
CPT/HCPCS: 36415; 70480; 70544; 70553; 71045; 80048; 80053; 80061; 81003; 82040; 82550; 82553; 83605; 83735; 83880; 84100; 84484; 85014; 85018; 85025; 85049; 85384; 86850; 86900; 86920; 87635; 93005; 93308; 93880; 93970; 95816; 96365; 97166; 97535; 99291; J1940; J2060; J2270; J2405; J2543; J3370; J7030; J7040; P9016; P9034; P9041